=== PATIENT | female | born 1935 | race Caucasian/White ===

== ENCOUNTER 2017-02-12 13:01 | Outpatient (CLI) | payer MEDICARE, OTHER | END 2017-02-12 13:02 | disposition home or self-care (01) | LOC: NAV LABSP 13:01 | PROVIDERS: ATTEND Urology | DX: N39.0 Urinary tract infection, site not specified (principal) | CPT/HCPCS: 87086 ==

== ENCOUNTER 2019-04-22 12:05 | Inpatient (IN) | payer MEDICARE, OTHER ==
[2019-04-22 13:16] LABS: Bilirubin Negative (Negative); Blood, Urine Moderate (Negative); Glucose, Urine (Dipstick) Negative (Negative); Leukocyte Large (Negative); Nitrite Positive (Negative); Protein, Urine (Dipstick) 100 mg/dL (Neg-Trace); Urobilinogen 0.2 mg/dL (Less than 2)
[2019-04-22 13:19] LABS: Bilirubin Negative (Negative); Blood, Urine Large (Negative); Glucose, Urine (Dipstick) Negative (Negative); Leukocyte Large (Negative); Nitrite Positive (Negative); Protein, Urine (Dipstick) 100 mg/dL (Neg-Trace); Urobilinogen 0.2 mg/dL (Less than 2)
[2019-04-22 13:22] LABS: #Basophils 0.1 thou/uL (0.0-0.2); #Eosinphils 0.1 thou/uL (0.0-0.7); #Lymphocytes 1.7 thou/uL (1.20-3.40); #Monocytes 0.4 thou/uL (0.11-0.59); #Neutrophils 11.8 thou/uL (1.40-6.50); %Basophils 0.9 % (0.0-1.0); %Eosinophils 0.8 % (0.0-10.0); %Lymphocytes 12.1 % (21.0-51.0); %Monocytes 3.1 % (0.0-10.0); %Neutrophils 83.2 % (42.0-75.0); Hemoglobin 10.4 g/dL (12.0-16.0); Mean Corpuscular HGB CONC 29.7 g/dL (32.0-36.0); Mean Corpuscular Hemoglobin 24.9 pg (27.0-31.0); Mean Corpuscular Volume 83.9 fL (78.0-98.0); Mean Platelet Volume 6.5 fL (7.4-10.4); Platelet Count 229 thou/uL (130-400); RBC Distribution Width 15.3 % (11.5-14.5); Red Blood Cell (RBC) Count 4.16 mill/uL (4.20-5.40); White Blood Cell (WBC) Count 14.1 thou/uL (4.8-10.8)
[2019-04-22 13:23] LABS: Clarity Cloudy (Clear)
[2019-04-22 13:24] LABS: Clarity Cloudy (Clear)
[2019-04-22 13:33] LABS: Bacteria/HPF 3+ HPF (None Seen); WBC/HPF Greater Than 50 HPF (0-3); Yeast-Hyphae 1+ HPF (None Seen)
[2019-04-22 13:36] LABS: Bacteria/HPF 4+ HPF (None Seen); Renal Epithelial 0-3 HPF (None Seen); WBC/HPF Greater Than 50 HPF (0-3)
[2019-04-22 13:42] LABS: ALT (SGPT) 9 U/L (8-55); AST (SGOT) 12 U/L (5-34); Albumin 3.2 g/dL (3.4-4.8); Alkaline Phosphatase 103 U/L (40-150); Anion Gap 16 mmol/L (10-20); BUN (Urea Nitrogen) 28 mg/dL (9.8-20.1); Bilirubin, Total 0.2 mg/dL (0.2-1.2); Calc. Creatinine Clearance 0 mL/min (70-130); Calcium 8.5 mg/dL (7.8-10.44); Carbon Dioxide 26 mmol/L (23-31); Chloride 102 mmol/L (98-107); Estimated GFR-MDRD 25; Glucose 92 mg/dL (83-110); Potassium 4.2 mmol/L (3.5-5.1); Protein, Total 6.2 g/dL (6.0-8.3); Sodium 140 mmol/L (136-145)
[2019-04-22] MEDS ORDERED: Meropenem 500 MG VIAL ONE (15:31)
[2019-04-22] MEDS ORDERED: Ondansetron PF 4 MG/2 ML Vial ONE (15:31)
[2019-04-22] MEDS ORDERED: HYDROcodone/Acetaminophen 5/325 mg Tablet ONE (16:09)
[2019-04-22] MEDS ORDERED: Albuterol Sulfate 2.5 mg/3 ml Neb ONE (16:24)
[2019-04-22 16:32] LABS: Wet Prep Clue Cells Clue Cells Absent (None Seen); Wet Prep Trichomonas Trichomonas Absent (None Seen)
[2019-04-22] MEDS ORDERED: Sodium Chloride 0.9% 1,000 ML ONE (16:44)
[2019-04-22 17:15] VITALS: BMI 22.1
[2019-04-22] MEDS ORDERED: Ondansetron ODT 4 MG TAB PO PRN (18:33)
[2019-04-22] MEDS ORDERED: Ventolin HFA Inhaler 60 PUFF INHALER INH PRN (18:35)
[2019-04-22] MEDS: Dextrose 5 % And 0.9 % NaCl 1,000 ML IV SCH (20:53)
[2019-04-22] MEDS: Famotidine 20 MG TAB PO SCH (20:54)
[2019-04-22] MEDS: Gabapentin 100 MG CAP PO SCH (20:54)
[2019-04-22] MEDS: Mometasone/Formoterol 60 PUFF AER INH SCH (20:54)
[2019-04-22] MEDS: Meropenem 1 GM in Sodium Chloride 0.9% 100 ML IVPB SCH (20:57)
[2019-04-22] MEDS: Albuterol Sulfate 2.5 mg/3 ml Neb NEB SCH (23:53)
[2019-04-23 05:41] LABS: #Basophils 0.1 thou/uL (0.0-0.2); #Eosinphils 0.1 thou/uL (0.0-0.7); #Lymphocytes 2.3 thou/uL (1.20-3.40); #Monocytes 0.5 thou/uL (0.11-0.59); #Neutrophils 5.7 thou/uL (1.40-6.50); %Basophils 1.1 % (0.0-1.0); %Eosinophils 1.6 % (0.0-10.0); %Lymphocytes 26.7 % (21.0-51.0); %Monocytes 5.9 % (0.0-10.0); %Neutrophils 64.7 % (42.0-75.0); Hemoglobin 9.3 g/dL (12.0-16.0); MDiff Complete? YES; Mean Corpuscular Volume 83.2 fL (78.0-98.0); Mean Platelet Volume 6.6 fL (7.4-10.4); Ovalocytes SLIGHT = 2-5 cells (100X) (0-1/hpf); Platelet Count 193 thou/uL (130-400); Platelet Morphology Comment Appears Adequate; RBC Distribution Width 15.5 % (11.5-14.5); Red Blood Cell (RBC) Count 3.72 mill/uL (4.20-5.40); Target Cells SLIGHT = 2-5 cells (100X) (0-1/hpf); White Blood Cell (WBC) Count 8.8 thou/uL (4.8-10.8)
[2019-04-23 05:45] LABS: ALT (SGPT) 8 U/L (8-55); AST (SGOT) 11 U/L (5-34); Albumin 2.8 g/dL (3.4-4.8); Alkaline Phosphatase 89 U/L (40-150); Anion Gap 14 mmol/L (10-20); BUN (Urea Nitrogen) 25 mg/dL (9.8-20.1); Bilirubin, Total 0.2 mg/dL (0.2-1.2); Calc. Creatinine Clearance 24 mL/min (70-130); Carbon Dioxide 26 mmol/L (23-31); Chloride 106 mmol/L (98-107); Estimated GFR-MDRD 27; Globulin 2.6 g/dL (2.4-3.5); Glucose 89 mg/dL (83-110); Potassium 3.9 mmol/L (3.5-5.1); Protein, Total 5.4 g/dL (6.0-8.3); Sodium 142 mmol/L (136-145)
[2019-04-23] MEDS: Albuterol Sulfate 2.5 mg/3 ml Neb NEB SCH ×3 (06:05→18:04)
[2019-04-23] MEDS: Meropenem 1 GM in Sodium Chloride 0.9% 100 ML IVPB SCH ×3 (06:05→21:08)
[2019-04-23] MEDS: Gabapentin 100 MG CAP PO SCH ×3 (08:49→20:22)
[2019-04-23] MEDS: Furosemide 40 MG TAB PO SCH (08:49)
[2019-04-23] MEDS: Mometasone/Formoterol 60 PUFF AER INH SCH ×2 (08:56→20:21)
[2019-04-23] MEDS: Dextrose 5 % And 0.9 % NaCl 1,000 ML IV SCH ×2 (08:59→13:10)
[2019-04-23] MEDS ORDERED: Prevnar 13-Val Conj/PF 0.5 ML SYRINGE IM ONE (09:00)
[2019-04-23] MEDS: Acetaminophen 500 MG TAB PO PRN (09:55)
[2019-04-23] MEDS: Famotidine 20 MG TAB PO SCH (20:22)
--- NOTE | 2019-04-23 20:50 | PRG ---
DATE OF SERVICE: 04/23/2019 SUBJECTIVE: The patient feels much better, persistent cough, but with no nausea, vomiting, fever, chills, and has been eating well. OBJECTIVE: VITAL SIGNS: Shows temperature is 98, pulse 99, respirations 20, O2 sats 93% on 4 L, blood pressure 111/54. LABORATORY DATA: Shows white count down to 8800, hematocrit 31, hemoglobin 9. Sodium 142, potassium 3.9, chloride 106, bicarb 26, BUN 25, creatinine 1.77. Urine culture is still pending. ASSESSMENT: 1. Resolving pyelonephritis with decreased white count, decreasing nausea, increasing strength on double antibiotics treatment for presumptive Pseudomonas. 2. Stable, but severe chronic obstructive pulmonary disease on handheld nebulizers and she will be on home inhalers, albuterol, and mometasone/formoterol. 3. Deconditioning, chronic. PLAN: 1. PT/OT. 2. Discontinue IV fluids. 3. Continue Levaquin and meropenem and await the results of urine culture. Job ID: [id number]
--- NOTE | 2019-04-23 23:56 | HP ---
CHIEF COMPLAINT: Nausea, vomiting, diarrhea, and anorexia. HISTORY OF PRESENT ILLNESS: The patient has a history of a chronic indwelling Arevalo with multiple infections, urinary tract infection, and feels this is what is causing her problem. In fact, she has had a recent admission for urinary tract infection with similar symptoms. She also has a history of chronic COPD, shortness of breath, and is oxygen dependent on 3 L of cannula. She presented to the emergency room also with a history of cough, shortness of breath, production of yellow sputum, but states this is not changed from previous. She was found in the emergency room to have urinalysis showing greater than 50 white cells, 11 to 20 red cells, 4+ bacteria. Sodium was 140; potassium 4.2; BUN 28; creatinine 1.92, which may be her baseline, the patient is unsure; albumin 3.2. Her white count was elevated to 14,100, hematocrit 34, and hemoglobin 10. She refused CT scan and stated that these labs showed that she had another infection and wished to be treated here in [place] even though her primary care physician is Dr. Radha Wyman at [facility]. PAST MEDICAL HISTORY: Remarkable for history of primary breast cancer, treated with radiation and surgery; history of aortic aneurysm repair with subsequent scarring, requiring right nephrostomy tube and a Arevalo catheter. PAST SURGICAL HISTORY: Positive for left lumpectomy, aortic aneurysm repair, renal stents, and right nephrostomy. SOCIAL HISTORY: She is a former tobacco smoker, smoked greater than 10 years ago, greater than [id number] history of smoking. She lives at home with her family. She does not stay at home alone at all. ALLERGIES: SHE IS ALLERGIC TO IODINE, SHELLFISH, AND SULFA. MEDICATIONS: On admission included, 1. Symbicort 160/4.5 twice daily. 2. Lasix 40 daily. 3. Ventolin inhaler p.r.n. 4. Metoprolol extended release 25 mg daily. 5. Gabapentin 100 mg three times daily. 6. Potassium 20 mEq daily. REVIEW OF SYSTEMS: Showed her to have, CONSTITUTIONAL: No complaints of headaches, dizziness, change in vision or hearing. HEENT: She denies sore throats or rhinorrhea. CARDIOVASCULAR: She denies chest pain, orthopnea or paroxysmal nocturnal dyspnea. PULMONARY: She reports cough productive of yellow sputum and stable dyspnea on exertion. GASTROINTESTINAL: She reports abdominal pain, anorexia, diarrhea, nausea, and vomiting. GENITOURINARY: She has the above-mentioned chronic nephrostomy tube and indwelling Arevalo. MUSCULOSKELETAL: She complains of diffuse generalized weakness and requires full assistance for transfers for many years. NEUROLOGIC: She denies localized numbness or weakness in arms or extremities, but just diffuse generalized weakness. PHYSICAL EXAMINATION: GENERAL: The patient is an elderly white female, in mild respiratory distress, oriented x3 and cooperative. VITAL SIGNS: Blood pressure 92/63, pulse 89, respirations 18, and O2 sats 96% on 4 L. HEENT: Pupils are equal, round, and reactive to light and accommodation. Sclerae anicteric. Conjunctivae pale. Oral mucous membranes are slightly hydrated. NECK: Supple. There are no nodes or masses. JVP is not elevated. LUNGS: Decreased breath sounds diffusely. No rales. A few diffuse rhonchi. CARDIAC: Regular rhythm. No gallops or murmurs. ABDOMEN: Soft and nontender. There is a right-sided nephrostomy tube. There is a Arevalo catheter. MUSCULOSKELETAL: She has fibroma covered by bandage on her right leg. No edema or clubbing. NEUROLOGIC: No focal findings. LABORATORY DATA: As above. ASSESSMENT: 1. This is an 84-year-old white female with a history of recurrent urinary tract infection with chronic indwelling Arevalo and nephrostomy and a previous history of Pseudomonas urinary tract infection, requiring recent admission. She has refused further evaluation, wishes only treatment for this, and therefore, was admitted to the hospital on IV Levaquin and meropenem for double coverage of Pseudomonas. 2. She also is continued on her home medications of mometasone/formoterol 2 puffs twice daily, Ventolin inhaler p.r.n., furosemide 40 daily, and Pepcid 20 daily. She will also be continued on metoprolol 25 daily. PLAN: 1. Admit to the hospital on meropenem and Levaquin. 2. Obtain results of urine culture. 3. Start PT/OT. 4. IV D5 normal saline at 75 an hour. Job ID: [id number]
[2019-04-24] MEDS: Albuterol Sulfate 2.5 mg/3 ml Neb NEB SCH ×4 (00:43→17:28)
[2019-04-24] MEDS: Meropenem 1 GM in Sodium Chloride 0.9% 100 ML IVPB SCH (05:14)
[2019-04-24] MEDS: Furosemide 40 MG TAB PO SCH (09:08)
[2019-04-24] MEDS: Gabapentin 100 MG CAP PO SCH ×3 (09:08→20:54)
[2019-04-24] MEDS: Mometasone/Formoterol 60 PUFF AER INH SCH ×2 (09:09→20:54)
[2019-04-24] MEDS: Acetaminophen 500 MG TAB PO PRN ×2 (09:18→15:33)
[2019-04-24] MEDS ORDERED: Naproxen 500 MG TAB PO SCH (12:30)
[2019-04-24] MEDS: Famotidine 20 MG TAB PO SCH (20:54)
[2019-04-24] MEDS: Cipro 250 MG TAB PO SCH (20:54)
[2019-04-24] MEDS: Naproxen 500 MG TAB PO SCH (20:54)
[2019-04-25] MEDS: Albuterol Sulfate 2.5 mg/3 ml Neb NEB SCH ×2 (00:13→05:25)
--- NOTE | 2019-04-25 05:08 | PRG ---
DATE OF SERVICE: 04/24/2019 SUBJECTIVE: The patient feels well. No complaints. Her IV has infiltrated and she wishes to have it discontinued. She is refusing physical therapy and states that she does not wish to walk. She is having stable cough sputum production. No real change in her COPD symptoms. OBJECTIVE: VITAL SIGNS: Her temperature is 97, pulse 77, respiratory rate is 20, O2 sats 97% on 3 L, blood pressure is 98/52. LUNGS: Show decreased breath sounds with no rales or rhonchi. CARDIAC: Shows regular rhythm. No gallops or murmurs. ABDOMEN: Soft and nontender. LABORATORY DATA: Urine culture is pending with mixed jordan at this time. White count yesterday is down to 8800, hematocrit 31, hemoglobin 9. BUN is down to 25, creatinine 1.77. ASSESSMENT: 1. Resolving urinary tract infection, on Levaquin and meropenem. 2. Stable chronic obstructive pulmonary disease. 3. Chronic deconditioning with inability to ambulate. PLAN: Discontinue IV meropenem, Levaquin at the patient's request. Start on Cipro 250 twice daily. As the patient feels well, does not wish physical therapy and states that she feels she could go home soon. We will start her on Cipro 250 twice daily and await results of culture. Job ID: [id number]
[2019-04-25] MEDS: Cipro 250 MG TAB PO SCH (05:25)
[2019-04-25] MEDS: Gabapentin 100 MG CAP PO SCH (08:56)
[2019-04-25] MEDS: Mometasone/Formoterol 60 PUFF AER INH SCH (08:56)
[2019-04-25] MEDS: Naproxen 500 MG TAB PO SCH (08:56)
[2019-04-25] MEDS: Furosemide 40 MG TAB PO SCH (08:56)
[2019-04-25 09:39] VITALS: BP 109/54; TEMP 96.1
[2019-04-25] MEDS ORDERED: Prevnar 13-Val Conj/PF 0.5 ML SYRINGE IM ONE (09:45)
== END 2019-04-25 10:39 | disposition home or self-care (01) | DRG 700 ==
LOC: NAV ERS 12:05 → NAV ACUTE 16:52
PROVIDERS: ADMIT Internal Medicine; ATTEND Internal Medicine
DX: T83.511A Infection and inflammatory reaction due to indwelling urethral catheter, initial encounter (principal); J44.9 Chronic obstructive pulmonary disease, unspecified; R53.81 Other malaise; Z99.81 Dependence on supplemental oxygen; Z85.3 Personal history of malignant neoplasm of breast; Z98.890 Other specified postprocedural states; Z91.041 Radiographic dye allergy status; Z88.2 Allergy status to sulfonamides; Z91.013 Allergy to seafood; Z79.899 Other long term (current) drug therapy; Z87.891 Personal history of nicotine dependence
CPT/HCPCS: 36415; 80053; 81003; 81015; 83605; 84484; 85025; 87086; 87210; 93005; 94640; 94760; J1956; J2185; J2405; J3490; J7042; J7050; J7611

== ENCOUNTER 2019-05-10 10:55 | Emergency (ER) | payer MEDICARE, OTHER ==
[~2019-05-10 10:55] MED LIST: Lidocaine 2% PF 100 mg/5 ml Syringe ONE
[2019-05-10] MEDS ORDERED: Sodium Chloride 0.9% 500 ML ONE (12:10)
[2019-05-10 12:17] LABS: ALT (SGPT) 7 U/L (8-55); AST (SGOT) 14 U/L (5-34); Albumin 3.2 g/dL (3.4-4.8); Alkaline Phosphatase 88 U/L (40-110); Anion Gap 18 mmol/L (10-20); BUN (Urea Nitrogen) 33 mg/dL (9.8-20.1); Bilirubin, Total 0.4 mg/dL (0.2-1.2); Calc. Creatinine Clearance 0 mL/min (70-130); Carbon Dioxide 24 mmol/L (23-31); Chloride 104 mmol/L (98-107); Estimated GFR-MDRD 20; Globulin 3.2 g/dL (2.4-3.5); Glucose 86 mg/dL (83-110); Lipase 4 U/L (8-78); Potassium 4.2 mmol/L (3.5-5.1); Protein, Total 6.4 g/dL (6.0-8.3); Sodium 142 mmol/L (136-145)
[2019-05-10 12:18] LABS: #Basophils 0.1 thou/uL (0.0-0.2); #Eosinphils 0.6 thou/uL (0.0-0.7); #Lymphocytes 2.3 thou/uL (1.20-3.40); #Monocytes 0.8 thou/uL (0.11-0.59); #Neutrophils 14.3 thou/uL (1.40-6.50); %Basophils 0.6 % (0.0-1.0); %Eosinophils 3.2 % (0.0-10.0); %Lymphocytes 12.6 % (21.0-51.0); %Monocytes 4.6 % (0.0-10.0); Hemoglobin 10.2 g/dL (12.0-16.0); Mean Corpuscular HGB CONC 29.7 g/dL (32.0-36.0); Mean Corpuscular Hemoglobin 24.6 pg (27.0-31.0); Mean Corpuscular Volume 82.6 fL (78.0-98.0); Mean Platelet Volume 5.9 fL (7.4-10.4); Platelet Count 215 thou/uL (130-400); RBC Distribution Width 15.3 % (11.5-14.5); Red Blood Cell (RBC) Count 4.14 mill/uL (4.20-5.40)
[2019-05-10 12:31] LABS: Bilirubin Negative (Negative); Blood, Urine Moderate (Negative); Clarity Cloudy (Clear); Glucose, Urine (Dipstick) Negative (Negative); Leukocyte Large (Negative); Nitrite Negative (Negative); Protein, Urine (Dipstick) 30 mg/dL (Neg-Trace); Urobilinogen 0.2 mg/dL (Less than 2)
[2019-05-10 12:46] LABS: WBC/HPF Greater Than 50 HPF (0-3)
[2019-05-10 12:47] LABS: Bacteria/HPF 3+ HPF (None Seen); Yeast-Budding 4+ HPF (None Seen); Yeast-Hyphae 3+ HPF (None Seen)
[2019-05-10] MEDS ORDERED: Cefepime 1 GM VIAL ONE (12:50)
[2019-05-10] MEDS ORDERED: Sodium Chloride 0.9% 0 ML ONE (12:50)
[2019-05-10] MEDS ORDERED: Sodium Chloride 0.9% 1,000 ML ONE (12:56)
[2019-05-10] MEDS ORDERED: Morphine 4 MG/ML VIAL ONE ×2 (13:20→13:54)
--- NOTE | 2019-05-10 13:20 | CT ---
CT ABDOMEN AND PELVIS WITHOUT CONTRAST: HISTORY: Pain. COMPARISON: 03/13/2019 FINDINGS: There is fibrosis and honeycombing of the imaged lung bases. Mild bilateral pleural fluid is present. Liver: Unremarkable. Gallbladder: Marked distention of gallbladder with calcified gallstones. Gallbladder has increased in volume from prior exam. Pancreas: Unremarkable. Spleen: Unremarkable. Adrenal glands: Stable fullness of left adrenal gland. Minimal nodularity of right adrenal gland. Kidneys: Atrophic kidneys, more so on the left. Percutaneous right-sided nephrostomy tube remains in place, and left ureteral stent remains. There has been interval decompression of left renal collecting system. Right renal collecting system remains decompressed. No nephrolithiasis. Bowel: Colonic diverticulosis. No bowel obstruction. Urinary Bladder: Urinary bladder is decompressed, limiting assessment. IVC filter remains in place. Redemonstration of diffuse vascular disease as well as areas of ectasia of the abdominal aorta. Aortobiiliac bypass is again seen. Free Air: No free air. Ascites: No ascites. Osseous structures: Diffuse degenerative change. Grade I spondylolisthesis at L4-5. IMPRESSION: Progressive volume increase of the markedly distended gallbladder. There is cholelithiasis. Transcribed Date/Time: 05/10/2019 2:04 PM
[2019-05-10] MEDS ORDERED: Ondansetron PF 4 MG/2 ML Vial ONE (13:54)
[2019-05-10 16:07] LABS: Lactic Acid 1.1 mmol/L (0.5-2.2)
[2019-05-10] MEDS ORDERED: Fentanyl 100 MCG/2 ML VIAL ONE ×2 (17:44→18:50)
[2019-05-10] MEDS ORDERED: Norepinephrine 4 MG/4 ML VIAL ONE ×2 (18:28→18:29)
[2019-05-10] MEDS ORDERED: Dextrose 5% in Water 250 ML ONE (18:30)
[2019-05-10] MEDS ORDERED: Lidocaine 1% (PF) 30 ML VIAL ONE (18:54)
[2019-05-10] MEDS ORDERED: Sodium Chloride 0.9% 250 ML 250 ML ONE (19:07)
== END 2019-05-10 19:33 | disposition short-term general hospital (02) ==
LOC: NAV ERS 10:55
DX: A41.9 Sepsis, unspecified organism (principal); N39.0 Urinary tract infection, site not specified; I50.9 Heart failure, unspecified; J44.9 Chronic obstructive pulmonary disease, unspecified; Z87.891 Personal history of nicotine dependence; Z79.899 Other long term (current) drug therapy; Z79.51 Long term (current) use of inhaled steroids; Z85.3 Personal history of malignant neoplasm of breast
CPT/HCPCS: 36680; 74176; 80053; 81003; 81015; 83605; 83690; 85025; 87040; 87077; 87086; 96361; 96365; 96374; 96375; 96376; 99292; J0692; J2001; J2270; J2405; J3010; J3370; J3490; J7050; J7070